=== PATIENT | male | born 1970 | race Caucasian/White ===

== ENCOUNTER 2019-10-16 02:09 | Day surgery (SDC) | payer BC, SELFPAY ==
[2019-10-09 12:42] VITALS: BMI 29.7
[2019-10-16 08:26] VITALS: BP 141/91; PULSE 73; RESP 14; TEMP 36.6; O2SAT 97; BMI 30.7
[2019-10-16] MEDS: LACTATED RINGERS 1,000 ML 150 ML IV CONT ×2 (08:40→09:23)
--- NOTE | 2019-10-16 08:49 | WPDANESEPPF ---
Anes - Initial Pre Proc Eval Procedure: Operation Date: 10/16/19 09:00 Proposed Procedures p Esophagogastroduodenoscopy - Anjel Cormier MD Date/Time: 10/16/19 08:49 Surgeon: Anjel Cormier MD Pre Op Diagnosis: GERD, Epigastric pain Patient Data Age: 49 Gender: M Height: 6 ft 2 in Weight: 108.7 kg Last Vital Signs Temp 36.6 C 10/16/19 08:26 Pulse 73 10/16/19 08:26 Resp 14 10/16/19 08:26 BP 141/91 H 10/16/19 08:26 Pulse Ox 97 10/16/19 08:26 Allergies Allergy/AdvReac Type Severity Reaction Status Date / Time No Known Allergies Allergy Verified 10/16/19 08:25 Home Medications Medication Instructions Recorded Confirmed Type lisinopril 10 mg PO DAILY 10/09/19 10/09/19 History omeprazole 20 mg PO 10/09/19 History simvastatin 40 mg PO DAILY 10/09/19 10/09/19 History Patient hx anesthesia problems: none Family hx anesthesia problems: none PMFSH Past Medical History Medical History (Updated 10/16/19 @ 08:50 by Dragan Carmen MD) HTN (hypertension) Hyperlipidemia Surgical History Surgical History (Updated 10/16/19 @ 08:50 by Dragan Carmen MD) H/O inguinal hernia repair Family History Family History Mother Family history of lung cancer, Onset Age: 90 Sibling Family history of lung cancer, Onset Age: 62 Family history of lupus erythematosus Father Family history of malignant neoplasm of urinary bladder, Onset Age: 87 Other Family history of cardiovascular disease Family history of malignant neoplasm Hypertension Social History Social History Smoking status: Never smoker Alcohol intake: current Gender identity (if verbalized by the patient): Male Anes - Eval Final PreProcedure Day of Procedure 10/16/19 08:49 Patient weight: obese Heart: regular rate and rhythm Lungs: clear to auscultation Airway: Mallampati scale class II Neurological: alert and oriented Last oral intake: >/= 8 hours ASA classification: II Emergent: no Anesthetic plan: proceed Anesthesia type and monitoring: general GIVS and standard monitoring Informed Consent: The patient's anesthetic plan and its attendant risks and benefits were discussed with the patient/family/POA. Questions were solicited and answers provided to the satisfaction of the patient/family/POA.
--- NOTE | 2019-10-16 09:11 | WPDGICN ---
Assessment and Plan Additional Plan This is a 49-year-old white male patient seen in evaluation at the request of Dr. Ant Sánchez. Patient reports abdominal pain for the last several months. He describes a stabbing pain in the upper abdomen. That has become now persistent and uncomfortable. It is not related to diet. It is not related to activity. He does have a long history of GE reflux disease and heartburn for at least 10 years. Heartburn has been treated initially with ranitidine in now with omeprazole for 1 month. Vague diffuse abdominal pain persists. Patient denies any bleeding. He denies any weight loss. Past medical history is significant for hypertension. Elevated cholesterol. Medications include lisinopril, simvastatin, omeprazole, No known drug allergies. Family history is noncontributory. Physical exam reveals patient to be alert. Vital signs stable. HEENT exam unremarkable. Lungs are clear to auscultation and percussion. Heart is without murmur or extra sounds. Abdominal exam bowel sounds are present soft nontender with no hepatosplenomegaly. Digital external rectal exam normal. Lab test include ultrasound of the right upper quadrant that is unremarkable. Splenomegaly is described however. Impression 1. GE reflux disease appears chronic. Now on proton pump inhibitor. 2. Epigastric pain. Some radiation diffusely throughout abdomen. Nonspecific description is noted. Plan is to continue omeprazole. An EGD will be performed because both above complaints. Further recommendations after endoscopy. GI Consult Note Consult date/time: 10/16/19 09:11 HPI: Houston Lowe is a 49 year old male [facility] Past Medical History Medical History (Updated 10/16/19 @ 08:50 by Dragan Carmen MD) HTN (hypertension) Hyperlipidemia Surgical History Surgical History (Updated 10/16/19 @ 08:50 by Dragan Carmen MD) H/O inguinal hernia repair Family History Family History Mother Family history of lung cancer, Onset Age: 90 Sibling Family history of lung cancer, Onset Age: 62 Family history of lupus erythematosus Father Family history of malignant neoplasm of urinary bladder, Onset Age: 87 Other Family history of cardiovascular disease Family history of malignant neoplasm Hypertension Social History Social History Smoking status: Never smoker Alcohol intake: current Gender identity (if verbalized by the patient): Male Meds Home Medications and Allergies Home Medications Medication Instructions Recorded Confirmed Type lisinopril 10 mg PO DAILY 10/09/19 10/09/19 History omeprazole 20 mg PO 10/09/19 History simvastatin 40 mg PO DAILY 10/09/19 10/09/19 History Allergies Allergy/AdvReac Type Severity Reaction Status Date / Time No Known Allergies Allergy Verified 10/16/19 08:25 Vital Signs Vital Signs - 24 hr 10/16/19 08:26 Temperature 36.6 C Pulse Rate 73 Respiratory Rate 14 Blood Pressure 141/91 H Pulse Oximetry 97
[2019-10-16 09:41] VITALS: BP 133/83; PULSE 97; RESP 14; O2SAT 99
[2019-10-16 09:51] VITALS: BP 129/84; PULSE 79; RESP 14; O2SAT 99
[2019-10-16 10:01] VITALS: BP 140/83; PULSE 76; RESP 14; O2SAT 99
== END 2019-10-16 10:10 | disposition home or self-care (01) ==
PROVIDERS: PCP Family Medicine; Visit Provider Internal Medicine Gastroenterology
PROC: 0DJ08ZZ Inspection of Upper Intestinal Tract, Via Natural or Artificial Opening Endoscopic (ICD-10-PCS; CPT 43235; principal; 2019-10-16 09:00)
DX: Q39.4 Esophageal web (principal); K21.0 Gastro-esophageal reflux disease with esophagitis; I10 Essential (primary) hypertension; E78.5 Hyperlipidemia, unspecified
CPT/HCPCS: 43235; 43450; J2704; J7120

== ENCOUNTER → 2020-08-24 09:18 | Outpatient (CLI) | payer BC, SELFPAY ==
--- NOTE | ~2020-08-24 | CT_ITS ---
EXAMINATION: CT abdomen pelvis wo con DATE: 08/24/2020 09:33 INDICATION: Generalized abdominal pain. Diarrhea, nausea. History of hernia repair. TECHNIQUE: Computed tomography (CT) of the abdomen and pelvis was performed without intravenous contr ast. Automated exposure control and iterative reconstruction technique were employed. Exam dose: 114 6.63 mGy-cm total exam DLP. COMPARISON: 09/05/2019 complete abdominal ultrasound examination FINDINGS: Minimal discoid atelectasis or scarring at the base of the lingula. The included lower lung s are clear of infiltrate or consolidation. Normal heart size. No pericardial or pleural effusion. The liver, gallbladder, bile ducts, pancreas, pancreatic duct, spleen, and adrenal glands and kidneys are unremarkable on this limited noncontrast examination. No urinary tract calculus or hydroureteron ephrosis. The urinary bladder, prostate gland and seminal vesicles are unremarkable. There is minimal atherosclerotic calcification of the abdominal aorta but no evidence of aneurysm. No intraperitoneal or retroperitoneal or pelvic mass lesion or adenopathy or ascites. Normal appendix. No bowel obstruction, bowel wall thickening, pneumatosis or intraperitoneal free air . No suspicious osteolytic or osteoblastic lesions are noted. IMPRESSION: No significant abnormality Reviewed, dictated and finalized at [facility]. Reviewed, dictated and finalized at [facility]. 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
== END ==
PROVIDERS: Visit Provider Family Medicine
DX: R10.9 Unspecified abdominal pain (principal)
CPT/HCPCS: 74176

== ENCOUNTER → 2020-09-26 01:01 | Outpatient (CLI) | payer BC, SELFPAY ==
[2020-09-27 00:21] LABS: SARS-CoV-2 RNA PCR Positive
== END ==
PROVIDERS: PCP Internal Medicine; Visit Provider Internal Medicine Gastroenterology
DX: U07.1 COVID-19 (principal); Z01.812 Encounter for preprocedural laboratory examination
CPT/HCPCS: C9803; U0003; U0005

== ENCOUNTER 2020-10-19 09:14 | Outpatient (CLI) | payer BC, SELFPAY ==
--- NOTE | 2020-10-28 18:40 | WPDHOMESLEEP ---
Sleep Study - Home Unattended Date of Study: 10/19/20 Ordering Provider: Patrice Blandon APRN Interpreting Provider: Milena Mukherjee MD Home Sleep Study Type: Apnea Link Air Height: 1.85 m Weight: 108.862 kg Body Mass Index: 31.6 Neck Circumference (inches): 18 [place]ander: 5 Reason for Sleep Study Difficulty falling asleep and staying asleep Sleep History Houston Lowe is a 50-year-old male who has had a long history of problems falling asleep and staying asleep. He has used [id number] sleep meds but had difficulty with vivid to violent dreams. He still woke up feeling tired. He frequently snores but only rarely is at loud enough the others complain about it. He occasionally awakens at night with heartburn, belching or coughing. He occasionally awakens from sleep feeling short of breath. He constantly has trouble sleep with a cold. He rarely wakes up gasping for breath at night, rarely has breathing problems at night observed by others and rarely sweats excessively at night. He occasionally notices his heart pounding or beating irregularly at night. He occasionally falls asleep during the day, never involuntarily or while driving. He does not have loss of muscle tone with strong emotion. He does not have daytime difficulties due to excessive sleepiness, works as a police sergeant precinct. He does not feel paralyzed on waking or falling asleep. He does not feel afraid to go to sleep. He occasionally has nightmares. He occasionally remembers his dreams. He constantly has racing thoughts. He occasionally feels sad depressed and anxious. He frequently has muscular tension. He rarely notices parts of his body jerking. He occasionally kicks at night. He occasionally has crawling and aching feelings in his legs. He occasionally has leg pain at night. He does not have morning jaw pain and does not grind his teeth during sleep. He occasionally is bothered by pain during the day. He rarely is awakened by pain at night. He frequently wakes up feeling stiff in the morning, occasionally with sore or achy muscles and pain in the neck and spine. He has headaches, fatigue, feels tense. Normal bedtime is between 9:00 p.m. and 10:00 p.m. taking usually longer than an hour to fall asleep, typically waking up 3-4 times at night usually for 10 minutes but sometimes he is not able to return to sleep. While awake, he goes to urinate, he drinks water and tries to fall asleep again. His normal wake up time is between 5:00 and 6:00 a.m.. On the weekends, his schedule varies as far as when he goes to bed. He still wakes early, between 6:00 and 7:00 a.m.. He estimates getting between 4 and 6 hours of non-consecutive sleep nightly. He does on occasion, on a day off, take a nap in the afternoon or evening. A short 10 or 15 minute nap may be refreshing. He frequently has morning headaches. He occasionally awakens feeling refreshed. He occasionally has heartburn at night. He feels better in the morning compared other times of day. Habits: Never smoked tobacco. Caffeine 2-3 cups of coffee a day. Alcohol average of a 12 pack per week. [facility] Past Medical History Medical History COVID-19 GERD with stricture HTN (hypertension) Hyperlipidemia Surgical History Surgical History H/O inguinal hernia repair History of vasectomy Family History Family History Mother Family history of lung cancer, Onset Age: 90 Sibling Family history of lung cancer, Onset Age: 62 Family history of lupus erythematosus Father Family history of malignant neoplasm of urinary bladder, Onset Age: 87 Other Family history of cardiovascular disease Family history of malignant neoplasm Hypertension Social History Social History
[2020-10-28 18:47] VITALS: BMI 31.6
== END 2020-10-19 09:15 | disposition home or self-care (01) ==
LOC: ANHCSM 09:14
PROVIDERS: PCP Internal Medicine; Visit Provider Nurse Practitioner
DX: G47.10 Hypersomnia, unspecified (principal)
CPT/HCPCS: 95806

== ENCOUNTER 2020-12-20 20:04 | Emergency (ER) | payer BC, SELFPAY ==
[2020-12-20 20:17] VITALS: BP 181/100; PULSE 103; RESP 18; TEMP 36.7; O2SAT 100
[2020-12-20 20:39] LABS: Basophils Percent Auto 0.4 % (0.2-1.2); Eosinophils Absolute Auto 0.1 K/mm3 (0-0.3); Eosinophils Percent Auto 2.5 % (0-4.4); Hematocrit 41.7 % (42.0-52.0); Hemoglobin 14.3 g/dL (14.0-18.0); Immature Granulocyte Absolute 0.02 K/mm3 (0.00-0.031); Immature Granulocyte Percent A 0.4 % (0-0.5); Lymphocytes Absolute Auto 1.02 K/mm3 (0.9-3.2); Lymphocytes Percent Auto 21.4 % (18.3-44.2); Mean Corpuscular HGB Conc 34.3 g/dl (32-36); Mean Corpuscular Volume 87.4 fl (80-100); Mean Platelet Volume 8.3 fl (7.4-10.4); Monocytes Absolute Auto 0.5 K/mm3 (0.1-0.6); Monocytes Percent Auto 11.3 % (2.6-8.5); Neutrophils Absolute Auto 3.1 K/mm3 (1.3-6.7); Platelet Count Result 191 k/mm3 (150-375); Red Blood Count 4.77 M/mm3 (4.6-6.20); Red Cell Distribution Width 12.6 % (11.5-14.5); White Blood Count 4.8 K/mm3 (4.5-10.0)
[2020-12-20 20:49] LABS: Anion Gap 9 mmol/L (8-16); Blood Urea Nitrogen 15 mg/dL (9-20); Calcium 9.4 mg/dL (8.4-10.2); Carbon Dioxide 26 mmol/L (22-30); Chloride 103 mmol/L (98-107); Estimated CRCL calculation 111 ml/min; Estimated Glomerular Filt Rate > 60; Glucose 106 mg/dL (75-110); Sodium 138 mmol/L (137-145)
[2020-12-20] MEDS: HYDROcodone/acetaminophen (*CRX) 5-325 MG TABLET 1 TAB PO (20:54)
[2020-12-20] MEDS: predniSONE 20 MG TABLET 60 MG PO (20:54)
[2020-12-20] MEDS: valACYclovir HCL 500 MG TABLET 1000 MG PO (20:55)
--- NOTE | 2020-12-20 21:02 | PC.NURSE ---
pt states he isn't able to urinate at this time, refused straight cath, urinal placed at bedside, instructed to use call light if needed.
--- NOTE | 2020-12-20 21:24 | PC.NURSE ---
Pt unable to void at this time, refuses straight cath, urinal at bedside.
[2020-12-20 21:50] VITALS: BP 142/88; PULSE 95; RESP 18; O2SAT 97
--- NOTE | 2020-12-20 21:53 | PC.NURSE ---
Pt to attempt voiding in restroom per RN request at this time.
[2020-12-20 22:07] LABS: Add Urine Microscopic? YES; Amorphous Sediment Urine Few; Appearance Urine Cloudy (Clear); Bilirubin Urine Negative (Negative); Blood Urine Negative (Negative); Color Urine Yellow (Yellow); Glucose Urine UA Negative (Negative); Ketones Urine Negative (Negative); Leukocyte Esterase Ur Negative LEU/UL (Negative); Mucus Urine Rare /lpf; Nitrate Urine Negative (Negative); Protein Urine 2+ mg/dL (Negative); RBC Urine 0-2 /hpf (0-2); Specific Grav Ur 1.027 (1.001-1.035); Squamous Epithelial Cell Urine Rare /hpf (Few); WBC Urine 0-3 /hpf
--- NOTE | 2020-12-20 22:15 | ED.GENADULT ---
HPI - General Adult General Chief complaint: Urogenital-Male Stated complaint: left hip and groin pain Time Seen by Provider: 12/20/20 20:23 Source: RN notes reviewed History of Present Illness HPI narrative: Patient presents emergency department from home for left groin pain. Patient states symptoms began 3 days ago with some mild low back pain that progressed yesterday and worsened today and the pain into his left groin that radiates around to the left lateral hip and back and to the left testicle he states that this was associated with a rash that had began yesterday this down on his scrotum and his left butt cheek patient denies having any fevers or chills or definitive abdominal pain he states he did have one episode nausea vomiting 2 days ago denies any other symptoms at this time Related Data Home Medications Medication Instructions Recorded Confirmed simvastatin 40 mg PO DAILY 10/09/19 09/11/20 alprazolam 0.5 mg tablet 0.5 mg PO .prn tablet 08/25/20 09/11/20 pantoprazole 40 mg tablet,delayed 40 mg PO QAM 08/25/20 09/11/20 release Allergies Allergy/AdvReac Type Severity Reaction Status Date / Time No Known Allergies Allergy Verified 12/20/20 20:20 Review of Systems Review of Systems: Narrative: Gen.: Denies fevers or chills ENT: Denies congestion Respiratory: Denies shortness of breath or cough CV: Denies chest pain or palpitations GI: Denies abdominal pain nausea, emesis or diarrhea denies burning, urgency, frequency or hematuria reports pain in the left testicle Musculoskeletal: Denies back pain reports low back pain Neuro: Denies numbness, tingling, weakness or focal weakness Skin: Reports rash Except as documented, all other systems reviewed and negative [facility] Past Medical History Medical History COVID-19 GERD with stricture HTN (hypertension) Hyperlipidemia Surgical History Surgical History H/O inguinal hernia repair History of vasectomy Family History Family History Mother Family history of lung cancer, Onset Age: 90 Sibling Family history of lung cancer, Onset Age: 62 Family history of lupus erythematosus Father Family history of malignant neoplasm of urinary bladder, Onset Age: 87 Other Family history of cardiovascular disease Family history of malignant neoplasm Hypertension Social History Social History Smoking status: Never smoker Alcohol intake: current Substance use type: does not use Gender identity (if verbalized by the patient): Male Spiritual care concerns: No Exam Narrative: Exam Narrative: APPEARANCE: No acute distress, nontoxic, resting in bed EYES: EOMI HEENT: Normocephalic, atraumatic, OMM RESPIRATORY: No respiratory distress Clear to auscultation bilaterally with no rhonchi wheezing or rales. CARDIOVASCULAR: Regular rate and rhythm without murmurs rubs or gallops. ABDOMINAL: Soft, nontender, nondistended, no rebound or guarding : Circumcised male no scrotal swelling bilateral testicles are nontender to palpation please see skin for rash MUSCULOSKELETAl: Moves all extremities. No clubbing, cyanosis or edema. NEURO: Awake and alert. Following commands, speech normal, no focal deficits SKIN:: Warm, dry. Erythematous rash with vesicles with a small patch over the lower left suprapubic region with rash over the left side of the scrotum and several small vesicles over the left distal penis with erythematous rash with vesicles extends down into the left gluteal fold and the left inner buttocks and into the left lower back all consistent with herpes zoster PSYCHIATRIC: Normal affect/mood, Course Course Emergency Course: Discussed with patient results of workup and diagnosis. Discussed need for follow-up with prim
[2020-12-20 22:40] VITALS: BP 160/94; PULSE 92; RESP 18; O2SAT 96
== END 2020-12-20 22:40 | disposition home or self-care (01) ==
PROVIDERS: Emergency Provider Emergency Medicine; PCP Internal Medicine
DX: B02.9 Zoster without complications (principal); Z86.16 Personal history of COVID-19; K21.9 Gastro-esophageal reflux disease without esophagitis; E78.5 Hyperlipidemia, unspecified; I10 Essential (primary) hypertension
CPT/HCPCS: 36415; 80048; 81001; 85025; 99283; A9270; J7512

== ENCOUNTER → 2021-06-21 02:35 | Outpatient (CLI) | payer BC, SELFPAY ==
[2021-06-21 16:20] LABS: SARS-CoV-2 RNA PCR Negative
== END ==
PROVIDERS: PCP Internal Medicine; Visit Provider Internal Medicine Gastroenterology
DX: Z01.812 Encounter for preprocedural laboratory examination (principal); Z20.822 Contact with and (suspected) exposure to COVID-19
CPT/HCPCS: C9803; U0003; U0005

== ENCOUNTER 2021-06-24 01:10 | Day surgery (SDC) | payer BC, SELFPAY ==
[2021-06-04 14:03] VITALS: BMI 30.4
[2021-06-24 09:20] VITALS: BP 144/92; PULSE 78; RESP 20; TEMP 36.1; O2SAT 98; BMI 30.6
[2021-06-24] MEDS: LACTATED RINGERS 1,000 ML 150 ML IV CONT (09:29)
--- NOTE | 2021-06-24 09:37 | P.PNAN_ITS ---
Anes - Initial Pre Proc Eval Procedure: Operation Date: 06/24/21 10:00 Proposed Procedures p Screening Colonoscopy - Anjel Cormier MD Date/Time: 06/24/21 09:37 Surgeon: Anjel Cormier MD Pre Op Diagnosis: neoplasm screening Patient Data Age: 50 Gender: M Height: 1.85 m Weight: 105.2 kg Last Vital Signs Temp 36.1 C L 06/24/21 09:20 Pulse 78 06/24/21 09:20 Resp 20 06/24/21 09:20 BP 144/92 H 06/24/21 09:20 Pulse Ox 98 06/24/21 09:20 Allergies Allergy/AdvReac Type Severity Reaction Status Date / Time No Known Allergies Allergy Verified 06/24/21 09:18 Home Medications Medication Instructions Recorded Confirmed Type alprazolam 0.5 mg tablet 0.5 mg PO .prn tablet 08/25/20 06/04/21 History hydrocodone-acetaminophen 1 tablet PO Q4H PRN #14 tablet 12/20/20 06/04/21 Rx losartan 50 mg tablet 50 mg PO DAILY #90 tablet 02/23/21 06/04/21 Rx pantoprazole 40 mg tablet,delayed 40 mg PO QAM #90 tablet 02/23/21 06/04/21 Rx release simvastatin 40 mg tablet 40 mg PO DAILY #90 tablet 02/23/21 06/04/21 Rx Patient hx anesthesia problems: none Family hx anesthesia problems: none Results Review: All pre-operative results and documents have been reviewed as part of the pre-operative evaluation. [facility], [facility] Past Medical History Medical History (Updated 02/23/21 @ 08:15 by Brandon Traylor DO) COVID-19 GERD with stricture HTN (hypertension) Hyperlipidemia Surgical History Surgical History H/O inguinal hernia repair History of vasectomy Family History Family History Mother Family history of lung cancer, Onset Age: 90 Sibling Family history of lung cancer, Onset Age: 62 Family history of lupus erythematosus Father Family history of malignant neoplasm of urinary bladder, Onset Age: 87 Other Family history of cardiovascular disease Family history of malignant neoplasm Hypertension Social History Social History (Updated 02/23/21 @ 08:01 by CHRISTINA Garcia Smoking status: Never smoker Alcohol intake: current Alcohol use details: social Substance use type: does not use Living arrangements: with family Gender identity (if verbalized by the patient): Male Spiritual care concerns: No Anes - Eval Final PreProcedure Day of Procedure 06/24/21 09:37 Patient weight: obese Heart: regular rate and rhythm Lungs: clear to auscultation and normal air movement Airway: Mallampati scale class II Neurological: alert and oriented Last oral intake: >/= 8 hours ASA classification: III Emergent: no Anesthetic plan: proceed Anesthesia type and monitoring: general GIVS Results Review: All pre-operative results and documents have been reviewed as part of the pre-operative evaluation. Informed Consent: The patient's anesthetic plan and its attendant risks and benefits were discussed with the patient/family/POA. Questions were solicited and answers provided to the satisfaction of the patient/family/POA.
--- NOTE | 2021-06-24 09:45 | WPDGICN ---
Assessment and Plan Assessment and plan (1) Family history of colon cancer in father: Code(s): Z80.0 - Family history of malignant neoplasm of digestive organs Status: Acute Assessment and Plan: Patient's father has had colon cancer. Therefore suggest follow-up colonoscopy at 5 year intervals. This report follows separately. (2) Family history of colonic polyps: Code(s): Z83.71 - Family history of colonic polyps Status: Acute Assessment and Plan: Patient's twin brother has had colon polyps. For this reason suggest follow-up colonoscopy at 5 year intervals. GI Consult Note Consult date/time: 06/24/21 09:45 HPI: Houston Lowe is a 50 year old male Presents for screening colonoscopy. Patient reports that his current weight appetite and bowel movements are normal. He denies abdominal pain. He has had no bleeding. Family history is significant his father had colon cancer. His twin brother has been identified with colon polyps. Patient presents today for neoplasia screening colonoscopy. Review of Systems Review of Systems: All systems reviewed & are unremarkable except as noted in HPI and below PMFSH Past Medical History Medical History (Updated 06/24/21 @ 09:46 by Anjel Cormier MD) COVID-19 GERD with stricture HTN (hypertension) Hyperlipidemia Surgical History Surgical History H/O inguinal hernia repair History of vasectomy Family History Family History Mother Family history of lung cancer, Onset Age: 90 Sibling Family history of lung cancer, Onset Age: 62 Family history of lupus erythematosus Father Family history of malignant neoplasm of urinary bladder, Onset Age: 87 Other Family history of cardiovascular disease Family history of malignant neoplasm Hypertension Social History Social History (Updated 02/23/21 @ 08:01 by Ebony Freeman MA) Smoking status: Never smoker Alcohol intake: current Alcohol use details: social Substance use type: does not use Living arrangements: with family Gender identity (if verbalized by the patient): Male Spiritual care concerns: No Meds Home Medications and Allergies Home Medications Medication Instructions Recorded Confirmed Type alprazolam 0.5 mg tablet 0.5 mg PO .prn tablet 08/25/20 06/04/21 History hydrocodone-acetaminophen 1 tablet PO Q4H PRN #14 tablet 05/02/21 10/15/21 Rx losartan 50 mg tablet 50 mg PO DAILY #90 tablet 02/23/21 06/04/21 Rx pantoprazole 40 mg tablet,delayed 40 mg PO QAM #90 tablet 02/23/21 06/04/21 Rx release simvastatin 40 mg tablet 40 mg PO DAILY #90 tablet 02/23/21 06/04/21 Rx Allergies Allergy/AdvReac Type Severity Reaction Status Date / Time No Known Allergies Allergy Verified 06/24/21 09:18 Vital Signs Vital Signs - 24 hr 06/24/21 09:20 Temperature 97 F L Pulse Rate 78 Respiratory Rate 20 Blood Pressure 144/92 H Pulse Oximetry 98 Exam Narrative: Physical exam reveals patient be alert. Vital signs stable. HEENT exam is unremarkable. Patient is anicteric. Lungs are clear to auscultation and percussion. Heart is without murmur or extra sounds. Abdominal exam bowel sounds present soft nontender with no organomegaly. Digital external rectal exam is normal.
[2021-06-24 10:30] VITALS: BP 112/81; PULSE 101; RESP 25; O2SAT 97
[2021-06-24 10:40] VITALS: BP 159/104; PULSE 98; RESP 24; O2SAT 98
[2021-06-24 10:50] VITALS: BP 155/100; PULSE 80; RESP 15; O2SAT 98
== END 2021-06-24 11:04 | disposition home or self-care (01) ==
PROVIDERS: PCP Internal Medicine; Visit Provider Internal Medicine Gastroenterology
PROC: 0DJD8ZZ Inspection of Lower Intestinal Tract, Via Natural or Artificial Opening Endoscopic (ICD-10-PCS; CPT 45378; principal; 2021-06-24 10:00)
DX: Z12.11 Encounter for screening for malignant neoplasm of colon (principal); D12.2 Benign neoplasm of ascending colon; D12.4 Benign neoplasm of descending colon; D12.5 Benign neoplasm of sigmoid colon; K62.1 Rectal polyp; Z83.71 Family history of colonic polyps; Z80.0 Family history of malignant neoplasm of digestive organs; I10 Essential (primary) hypertension; E78.5 Hyperlipidemia, unspecified; K21.9 Gastro-esophageal reflux disease without esophagitis; Z86.16 Personal history of COVID-19; E66.9 Obesity, unspecified; Z68.30 Body mass index [BMI] 30.0-30.9, adult
CPT/HCPCS: 45385; 88305; J2704; J7120